=== PATIENT | male | born 1985 | race American Indian/Alaskan Native ===

== ENCOUNTER 2017-06-12 11:55 | Emergency (ER) | payer SELFPAY ==
[2017-06-12] MEDS ORDERED: KEPPRA 1,000 MG/NS 0.75% 100ML 1,000 MG/100 ML BAG IV ONE (14:21)
[2017-06-12 15:34] LABS: Basophils # (Auto) 0.1 K/mm3 (0.0-0.1); Basophils % (Auto) 0.7 % (0.0-1.8); Eosinophils % (Auto) 0.3 % (0.0-4.3); Hematocrit 49.4 % (35.5-45.6); Hemoglobin 16.6 gm/dl (11.8-15.2); Lymphocytes # (Auto) 1.8 K/mm3 (1.2-5.4); Lymphocytes % (Auto) 21.9 % (13.4-35.0); Mean Corpuscular HGB Conc 34 % (32-34); Mean Corpuscular Hemoglobin 28 pg (28-32); Mean Corpuscular Volume 85 fl (84-94); Monocytes # (Auto) 0.6 K/mm3 (0.0-0.8); Platelet Count 203 K/mm3 (140-440); Red Blood Count 5.84 M/mm3 (3.65-5.03); Red Cell Distribution Width 13.9 % (13.2-15.2)
--- NOTE | 2017-06-12 15:45 | Cat Scan Report ---
CT HEAD WITHOUT CONTRAST: HISTORY: Seizure. TECHNIQUE: Sequential 2.5mm CT images. COMPARISON: none. FINDINGS: Cerebral Parenchyma: Within normal limits. Cerebellum: Within normal limits. Brainstem: Within normal limits. Ventricles: Normal. Sella: Normal. Extra-axial spaces: Normal. Basal Cisterns: Normal. Intracranial Hemorrhage: None. Midline Shift: None. Calvarium: Normal. Sinuses: Normal. Mastoid Air Cells: Normal. Visualized Orbits: Normal. IMPRESSION: Cranial CT scan within normal limits.
[2017-06-12 15:51] LABS: Alanine Aminotransferase 20 units/L (7-56); BUN/Creatinine Ratio 13; Bilirubin,Direct < 0.2 mg/dL (0-0.2); Blood Urea Nitrogen 9 mg/dL (9-20); Calcium 8.8 mg/dL (8.4-10.2); Hemolysis Index 19
[2017-06-12] MEDS ORDERED: TORADOL IV ONE (16:51)
[2017-06-12] MEDS ORDERED: NACL 0.9% 1000 ML 1,000 ML IV ONE (16:51)
[2017-06-12 17:30] LABS: Bilirubin,Urine NEG (Negative); Blood,Urine NEG (Negative); Color,Urine Yellow (Yellow); Mucus,Urine FEW /HPF; Nitrite,Urine NEG (Negative); Urobilinogen,Urine < 2.0 mg/dL (<2.0)
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
[2017-06-12 17:39] LABS: Amphetamine Screen,Urine PRESUMPTIVE NEGATIVE; Benzodiazepines Screen,Urine PRESUMPTIVE NEGATIVE; Cocaine Screen,Urine PRESUMPTIVE NEGATIVE; Methadone Screen,Urine PRESUMPTIVE NEGATIVE; Opiate Screen,Urine PRESUMPTIVE NEGATIVE
[2017-06-12 17:53] LABS: Cannabinoid Screen,Urine PRESUMPTIVE POSITIVE
[2017-06-12] MEDS ORDERED: NORCO 5/325 PO ONE (18:00)
[2017-06-12] MEDS ORDERED: NORCO 5/325 ONE (18:30)
[2017-06-12 18:43] VITALS: BP 121/69
== END 2017-06-12 19:49 | disposition home or self-care (01) ==
LOC: ED 11:55
DX: R56.9 Unspecified convulsions (principal); R51 Headache; F12.10 Cannabis abuse, uncomplicated; R53.83 Other fatigue; F17.200 Nicotine dependence, unspecified, uncomplicated
CPT/HCPCS: 36415; 70450; 80048; 80074; 80307; 81001; 82550; 83735; 85025; 96361; 96374; 96375; 99284; J1885; J1953; J7030

== ENCOUNTER 2017-09-30 06:40 | Emergency (ER) | payer OTHER ==
[2017-09-30 07:33] LABS: BUN/Creatinine Ratio 11; Blood Urea Nitrogen 11 mg/dL (9-20); Calcium 9.3 mg/dL (8.4-10.2); Hemolysis Index 38
[2017-09-30 07:38] LABS: Hemoglobin 15.9 gm/dl (11.8-15.2); Mean Platelet Volume 8.2 fl (6-12); Red Blood Count 5.77 M/mm3 (3.65-5.03); Red Cell Distribution Width 14.1 % (13.2-15.2)
[2017-09-30] MEDS ORDERED: ATIVAN ONE (08:14)
[2017-09-30] MEDS ORDERED: KEPPRA 1,000 MG/NS 0.75% 100ML 1,000 MG/100 ML BAG IV ONE ×2 (08:16→08:18)
[2017-09-30] MEDS ORDERED: ATIVAN IV ONE (08:18)
[2017-09-30] MEDS ORDERED: NACL 0.9% 1000 ML 1,000 ML IV ONE (08:18)
[2017-09-30] MEDS ORDERED: VITAMIN B-1 100 MG, FOLVITE 1 MG, INFUVITE 10 ML in NACL 0.9% 1000 ML 1,000 ML IV ONE (09:00)
--- NOTE | 2017-09-30 09:01 | Cat Scan Report ---
FINAL REPORT EXAM: CT HEAD/BRAIN WO CON HISTORY: seizure TECHNIQUE: CT imaging acquired through the head without intravenous contrast. Transaxial reformations are provided. PRIORS: 06/12/2017 FINDINGS: The ventricles, cisterns and sulci are normal. No intraparenchymal or extra-axial mass, hemorrhage, or mass effect. Berger and white-matter differentiation is normal. Normal spherical shape of the globes. Paranasal sinuses and mastoid air cells are clear. No skull or facial fracture visualized. IMPRESSION: No acute intracranial abnormality. Consider follow-up MRI as warranted.
--- NOTE | 2017-09-30 13:04 | Emergency Department Report ---
HPI - General Chief Complaint: Seizure Time Seen by Provider: 09/30/17 08:17 - HPI HPI: The patient is a 32-year-old male who presents for evaluation of seizure. The patient arrives with his whom reports seizure-like activity 2 hours prior to arrival. She states that the seizure was severe and constant for approximately 1 minute, and resolved spontaneously. The patient admits to noncompliance with antiseizure medication regimen. The patient denies fever, head injury, headache, neck pain, neck stiffness, vision or hearing changes, smell or taste changes, paresthesias, facial drooping, slurred speech, urine or bowel incontinence or retention, or other focal neurological deficit. ED Past Medical Hx - Past Medical History Previous Medical History?: No Hx Hypertension: No - Surgical History Past Surgical History?: No - Social History Smoking Status: Unknown if ever smoked Substance Use Type: None - Medications Home Medications: Home Medications Medication Instructions Recorded Confirmed Last Taken Type Ibuprofen [Motrin] 800 mg PO Q8HR PRN #30 tablet 06/12/17 Unknown Rx levETIRAcetam [Keppra] 500 mg PO BID #60 tablet 09/30/17 Unknown Rx ED Review of Systems ROS: Stated complaint: SEIZERS Other details as noted in HPI Constitutional: denies: fever ENT: denies: throat or neck pain Respiratory: denies: cough, shortness of breath Cardiovascular: denies: chest pain Endocrine: denies unexplained weight loss or gain Gastrointestinal: denies: abdominal pain, nausea Genitourinary: denies: dysuria Musculoskeletal: denies: leg swelling Skin: denies: rash Neurological: reports seizure denies: headache Hematological/Lymphatic: denies: easy bleeding or easy bruising Psych: denies sadness or hopelessness Physical Exam - Physical Exam Vital Signs: Vital Signs 09/30/17 09/30/17 09/30/17 06:45 06:55 07:00 Temperature 98.3 F Pulse Rate 85 92 H Respiratory 18 16 Rate Blood Pressure 118/79 Blood Pressure 109/61 [Left] O2 Sat by Pulse 98 98 Oximetry 09/30/17 09/30/17 09/30/17 07:16 07:30 07:46 Temperature Pulse Rate 73 Respiratory 17 Rate Blood Pressure 118/79 127/84 127/84 Blood Pressure [Left] O2 Sat by Pulse 95 93 96 Oximetry 05/05/0809/30/17 09/30/17 08:00 08:18 08:30 Temperature Pulse Rate 91 H Respiratory 20 Rate Blood Pressure 126/80 126/80 129/72 Blood Pressure [Left] O2 Sat by Pulse 96 95 96 Oximetry 09/30/17 09/30/17 09/30/17 08:46 09:00 09:16 Temperature Pulse Rate 86 90 Respiratory 21 19 Rate Blood Pressure 129/72 122/80 126/80 Blood Pressure [Left] O2 Sat by Pulse 96 99 Oximetry 09/30/17 09/30/17 09/30/17 09:30 09:46 10:00 Temperature Pulse Rate Respiratory Rate Blood Pressure 120/78 120/78 113/62 Blood Pressure [Left] O2 Sat by Pulse 99 100 Oximetry 09/30/17 09/30/17 09/30/17 10:16 10:30 10:46 Temperature Pulse Rate Respiratory Rate Blood Pressure 113/62 110/65 110/65 Blood Pressure [Left] O2 Sat by Pulse 100 98 100 Oximetry 09/30/17 09/30/17 09/30/17 11:00 11:16 11:30 Temperature Pulse Rate Respiratory Rate Blood Pressure 107/71 107/71 110/72 Blood Pressure [Left] O2 Sat by Pulse 100 100 Oximetry 09/30/17 09/30/17 11:53 12:00 Temperature Pulse Rate Respiratory Rate Blood Pressure 100/66 Blood Pressure [Left] O2 Sat by Pulse 100 99 Oximetry Physical Exam: General: well-nourished, well-developed, no acute distress Head: Normocephalic, atraumatic Eyes: normal sclera ENT: Mucous membranes are pale and dry Neck: No neck stiffness, no cervical adenopathy Respiratory: Breath sounds equal bilaterally, no wheezing, rales, or rhonchi Cardio: S1 and S2 present, no murmurs, rubs, gallops, capillary refill is delayed Abdomen: Normoactive bowel sounds, soft abdomen, no rigidity, no guarding or rebound tenderness Chest WALL/Back: No tenderness to palpation of the chest wall, no CVA tenderness with percussion Musc: No pitting edema Skin: No rash Neuro: alert, disoriented, postictal, gag reflex intact, protecting airway, PERRL, EOM intact, no facial drooping, no uvula or tongue deviation on protrusion, no deficit with rotation of neck or shoulder shrug, no obvious gross motor deficit in the upper or lower extremities with flexion or extension at the shoulder, elbow, wrist, hip, knee, or ankle bilaterally, no obvious gross sensation deficit to crude touch or 2 pt discrimination, 2+ symmetric reflexes on DTR testing, no coordination deficit with [id number] or heel-to- jacobsen testing, Babinski downgoing, romberg negative, patient able to to ambulate without abnormal gait Psych: Normal affect ED Course Vital Signs 09/30/17 09/30/17 09/30/17 06:45 06:55 07:00 Temperature 98.3 F Pulse Rate 85 92 H Respiratory 18 16 Rate Blood Pressure 118/79 Blood Pressure 109/61 [Left] O2 Sat by Pulse 98 98 Oximetry 09/30/17 09/30/17 09/30/17 07:16 07:30 07:46 Temperature Pulse Rate 73 Respiratory 17 Rate Blood Pressure 118/79 127/84 127/84 Blood Pressure [Left] O2 Sat by Pulse 95 93 96 Oximetry 09/30/17 09/30/17 09/30/17 08:00 08:18 08:30 Temperature Pulse Rate 91 H Respiratory 20 Rate Blood Pressure 126/80 126/80 129/72 Blood Pressure [Left] O2 Sat by Pulse 96 95 96 Oximetry 09/30/17 09/30/17 09/30/17 08:46 09:00 09:16 Temperature Pulse Rate 86 90 Respiratory 21 19 Rate Blood Pressure 129/72 122/80 126/80 Blood Pressure [Left] O2 Sat by Pulse 96 99 Oximetry 09/30/17 09/30/17 09/30/17 09:30 09:46 10:00 Temperature Pulse Rate Respiratory Rate Blood Pressure 120/78 120/78 113/62 Blood Pressure [Left] O2 Sat by Pulse 99 100 Oximetry 09/30/17 09/30/17 09/30/17 10:16 10:30 10:46 Temperature Pulse Rate Respiratory Rate Blood Pressure 113/62 110/65 110/65 Blood Pressure [Left] O2 Sat by Pulse 100 98 100 Oximetry 09/30/17 09/30/17 09/30/17 11:00 11:16 11:30 Temperature Pulse Rate Respiratory Rate Blood Pressure 107/71 107/71 110/72 Blood Pressure [Left] O2 Sat by Pulse 100 100 Oximetry 09/30/17 09/30/17 11:53 12:00 Temperature Pulse Rate Respiratory Rate Blood Pressure 100/66 Blood Pressure [Left] O2 Sat by Pulse 100 99 Oximetry ED Medical Decision Making - Lab Data Result diagrams: 09/30/17 06:58 09/30/17 06:58 - Medical Decision Making The patient was seen and examined by myself. The patient is placed on a automated cutting machine operator and continuous pulse ox. On initial evaluation, the patient was found to be in no distress. Evaluation orders were placed. The patient is given Ativan and IV Keppra for treatment of seizure. The patient given normal saline fluid bolus for treatment of dehydration. Lab results are unremarkable. CT scan the head is negative for acute intracranial disease process. The patient was monitored in the emergency department for greater than 2 hours without recurrence of seizure-like activity. On reevaluation the patient's found to be alert oriented 3, with no neuro deficits on neuro exam whatsoever. The patient was reevaluated and reported that their symptoms were markedly improved. The patient is stable for discharge with outpatient follow-up. The patient is given follow-up and return instructions. The patient expressed understanding and agreed with the plan. The patient is discharged in stable condition. Critical care attestation.: If time is entered above; I have spent that time in minutes in the direct care of this critically ill patient, excluding procedure time. ED Disposition Clinical Impression: Seizure disorder, Dehydration Disposition: DC-01 TO HOME OR SELFCARE Is pt being admited?: No Does the pt Need Aspirin: No Condition: Stable Instructions: Epilepsy (ED), Recurrent Seizures Adult (ED), New-Onset Seizure in Adults (ED) Referrals: PRIMARY CAREMD [Primary Care Provider] - 3-5 Days BENJI KHAN MD [Staff Physician] - 3-5 Days Time of Disposition: 12:49
[2017-09-30 13:43] VITALS: BP 114/67
== END 2017-09-30 13:43 | disposition home or self-care (01) ==
LOC: ED 06:40
DX: G40.909 Epilepsy, unspecified, not intractable, without status epilepticus (principal); E86.0 Dehydration
CPT/HCPCS: 36415; 70450; 80048; 85027; 96365; 96366; 96367; 96375; 99285; J1953; J2060; J3411; J7030